=== PATIENT | male | born 1950 | race Caucasian/White ===

== ENCOUNTER 2017-01-02 12:38 | Emergency (ER) | payer MEDICARE, BC ==
[2017-01-02] MEDS ORDERED: Lidocaine 1% 50 ML MDV ONE (13:07)
--- NOTE | 2017-01-02 13:43 | EDM.PDOC ---
ED HPI GENERAL MEDICAL PROBLEM - General Chief Complaint: Upper Extremity Injury/Pain Stated Complaint: RIGHT THUMB INJURY-ON COUMADIN Time Seen by Provider: 01/02/17 13:08 Source of Information: Reports: Patient History Limitations: Reports: No Limitations - History of Present Illness INITIAL COMMENTS - FREE TEXT/NARRATIVE: Patient is a 66-year-old male who presents to the ED complaining of a laceration to the palmar aspect of his right thumb on Coumadin. Patient states he was utilizing a table saw cutting a piece of wood causing injury. Bleeding was moderate controlled with direct pressure. Last INR was 2.43. He is on Coumadin for a stroke that occurred in . Denies any numbness or tingling, decreased range of motion, injury to other aspects of his hand/fingers or any additional complaint. Right Hand Pain Score (Numeric/FACES): 5 - Related Data Allergies Allergy/AdvReac Type Severity Reaction Status Date / Time No Known Allergies Allergy Verified 01/02/17 12:46 Home Meds: Home Meds Cephalexin [Keflex] 500 mg PO QID #28 capsule 01/02/17 [Rx] Diltiazem [Cardizem CD] 180 mg PO DAILY 01/02/17 [History] Diltiazem [Cardizem CD] 240 mg PO DAILY 01/02/17 [History] Warfarin [Coumadin] 5 mg PO DAILY 01/02/17 [History] Past Medical History HEENT History: Reports: Cataract, Impaired Vision Cardiovascular History: Reports: Hypertension Neurological History: Reports: CVA Other Neuro History: CVA in 2007 - Past Surgical History HEENT Surgical History: Reports: Eye Surgery Social & Family History - Family History Family Medical History: Noncontributory - Tobacco Use Smoking Status *Q: Former Smoker Used Tobacco, but Quit: Yes Month Tobacco Last Used: Dec Tobacco Use Comment: Quit many years ago greater than 7 - Caffeine Use Caffeine Use: Reports: Coffee - Recreational Drug Use Recreational Drug Use: No Review of Systems - Review of Systems Review Of Systems: ROS reveals no pertinent complaints other than HPI. ED EXAM, GENERAL - Physical Exam Exam: See Below Exam Limited By: No Limitations General Appearance: Alert, WD/WN, No Apparent Distress Ears: Hearing Grossly Normal Nose: Normal Inspection Throat/Mouth: Normal Voice, No Airway Compromise Neck: Normal Inspection, Supple Respiratory/Chest: No Respiratory Distress, No Accessory Muscle Use Cardiovascular: Normal Peripheral Pulses, Regular Rate, Rhythm Peripheral Pulses: 2+: Radial (R) Extremities: Other (Right thumb: Large flap laceration to the palmar aspect of his right thumb measuring approximate 6-7 cm in total length. Able to see the DIP and also flexor tendon. Flexor tendon has been completely severed. Patient still able to flex the distal phalanx against resistance with no pain. No sensory/motor deficits noted.) Neurological: Alert, Oriented, CN II-XII Intact, Normal Cognition, No Motor/ Sensory Deficits Psychiatric: Normal Affect, Normal Mood Skin Exam: Warm, Dry, Normal Color ED TRAUMA EXTREMITY PROCEDURES - Laceration/Wound Repair Right Other Lac/Wound Length In cm: 7 Appearance: Subcutaneous Distal NVT: Neuro & Vascular Intact, Other (complete tear of the flexor tendon distal phalanx) Anesthetic Type: Local Local Anesthesia - Lidocaine (Xylocaine): 1% Plain Local Anesthetic Volume: Other (8) Skin Prep: Chlorhexidine (Hibiciens), Saline, Sterile Drape Exploration/Debridement/Repair: Wound Explored, In a Bloodless Field, Explored to Base, No Foreign Material Found, Multiple Flaps Aligned Closed With: Sutures Suture Size: 4-0 # of Sutures: 10 Suture Type: Prolene, Interrupted, Simple Drain Placement: No Sterile Dressing Applied: Nurse Tetanus Status Addressed: Yes Complications: No Course - Vital Signs Last Recorded V/S: Last Vital Signs Temp 97.5 F 01/02/17 12:50 Pulse 108 H 01/02/17 12:50 Resp 18 01/02/17 12:50 BP 142/96 H 01/02/17 12:50 Pulse Ox 97 01/02/17 12:50 - Orders/Labs/Meds Meds: Medications Discontinued Medications Generic Name Dose Route Start Last Admin Trade Name Freq PRN Reason Stop Dose Admin Cefazolin Sodium 1,000 mg 01/02/17 14:18 01/02/17 15:06 Ancef IM 01/02/17 14:19 Not Given ONETIME ONE Cefazolin Sodium Confirm 01/02/17 14:33 01/02/17 15:05 Ancef Administered 01/02/17 14:34 1 gm Dose Administration 1 gm .ROUTE .STK-MED ONE Cephalexin 500 mg 01/02/17 14:18 01/02/17 14:50 Keflex PO 01/02/17 14:19 500 mg ONETIME ONE Administration Lidocaine HCl Confirm 01/02/17 13:07 01/02/17 13:15 Xylocaine 1% Administered 01/02/17 13:08 50 ml Dose Administration 50 ml .ROUTE .[facility] - Re-Assessments/Exams Free Text/Narrative Re-Assessment/Exam: Ordered 1% lidocaine and x-ray of the right thumb. Due to excessive bleeding Surgicel was placed to the affected wound. This stopped the bleeding. X-ray of the right thumb does not reveal any acute bony abnormalities. Although bone is visualized on examination. Ordered Ancef 1 g IM and Keflex 500 mg by mouth. Offered to the patient to be transported to [facility] to have the wound surgically closed by a orthopedic surgeon. Patient refuses and states wants it done here. 01/02/17 14:18 X-ray of the right thumb did not reveal any acute bony abnormalities. Soft tissue swelling only. Laceration closed with no complications. On examination it appears flexor tendon to the DIP was completely severed. Patient still able to flex the DIP. Dressing applied per nursing staff. Discharge instructions as documented. Departure - Departure Time of Disposition: 14:19 Disposition: Home, Self-Care 01 Condition: Good Clinical Impression: Laceration of thumb Qualifiers: Encounter type: initial encounter Damage to nail status: without damage Foreign body presence: without foreign body Laterality: right Qualified Code(s) : S61.011A - Laceration without foreign body of right thumb without damage to nail, initial encounter Flexor tendon laceration of finger with open wound Qualifiers: Encounter type: initial encounter Qualified Code(s): S56.129A - Laceration of flexor muscle, fascia and tendon of unspecified finger at forearm level, initial encounter; S61.209A - Unspecified open wound of unspecified finger without damage to nail, initial encounter; S61.209A - Unspecified open wound of unspecified finger without damage to nail, initial encounter - Discharge Information Prescriptions: Cephalexin [Keflex] 500 mg PO QID #28 capsule Instructions: Laceration Care, Adult Referrals: David Nunez MD [Primary Care Provider] - [facility] [Outside] Forms: ED Department Discharge Additional Instructions: Cleanse site twice daily with soap and water, pat dry, reapply triple antibiotics ointment, and dressing. Do not soak the wound. Keep the area clean and dry. Call and make an appointment today with [facility] be [facility] next week for further evaluation. Leave splint in place until evaluated by orthopedic surgeon. Follow-up with a provider at [facility] in [place] in 10 days to have sutures removed. Complete the full course of antibiotic as prescribed. Take Tylenol and ibuprofen in alternating fashion for discomfort. INR will increase with antibiotic use. Please follow up with PCP for recheck of your INR. Return to ED for any new or worsening symptoms.
--- NOTE | 2017-01-02 14:00 | CR ---
Right thumb: Three views of the right thumb were obtained. Soft tissue injury is seen. No opaque foreign object is seen. No acute bony abnormality is noted. Slight degenerative change is present. Impression: 1. Soft tissue injury and slight degenerative change. 2. No acute bony abnormality is seen. Diagnostic code #3
[2017-01-02] MEDS ORDERED: ceFAZolin 1,000 MG VIAL IM ONE (14:18)
[2017-01-02] MEDS ORDERED: Cephalexin 500 MG Cap PO ONE (14:18)
[2017-01-02] MEDS ORDERED: ceFAZolin 1 GM Vial ONE (14:33)
== END 2017-01-02 15:12 | disposition home or self-care (01) ==
LOC: JD.ED 12:38
DX: S66.021A Laceration of long flexor muscle, fascia and tendon of right thumb at wrist and hand level, initial encounter (principal); S61.011A Laceration without foreign body of right thumb without damage to nail, initial encounter; Z79.01 Long term (current) use of anticoagulants; Z79.899 Other long term (current) drug therapy; Z87.891 Personal history of nicotine dependence; W27.0XXA Contact with workbench tool, initial encounter
CPT/HCPCS: 12002; 73140; 96372; 99283; A9270; J0690; 12032; 99284-25

== ENCOUNTER 2017-12-11 07:34 | Emergency (ER) | payer MEDICARE, BC ==
--- NOTE | 2017-12-11 08:08 | EDM.PDOC ---
ED HPI GENERAL MEDICAL PROBLEM - General Chief Complaint: Syncope Stated Complaint: SYNCOPE Time Seen by Provider: 12/11/17 07:46 Source of Information: Reports: Patient, Family ( + daughter), RN Notes Reviewed History Limitations: Reports: No Limitations - History of Present Illness INITIAL COMMENTS - FREE TEXT/NARRATIVE: The patient states that he got up from his kitchen table around 07:00 this morning. He states that he felt clammy and diaphoretic, then nearly passed out. He was able to lower himself to the floor, and was not injured. His had him remain there while she called EMS. EMS evaluated the patient and found no abnormalities. The patient's then drove the patient to the ED. Here in the ED, the patient states that he feels slightly lightheaded, and he is complaining of a chronic upper right toothache, otherwise, he has no complaints. The patient had 2 prior syncopal or near syncopal episodes, about 9 or 10 years ago. He states that evaluations at that time were both negative. No recent illnesses, including no recent fever, cough, chest pain, dyspnea, abdominal pain, or diarrhea. The patient's PCP is Dr. Nunez. - Related Data Allergies Allergy/AdvReac Type Severity Reaction Status Date / Time No Known Allergies Allergy Verified 01/02/17 12:46 Home Meds: Home Meds Diltiazem [Cardizem CD] 180 mg PO DAILY 01/02/17 [History] Diltiazem [Cardizem CD] 240 mg PO DAILY 01/02/17 [History] Warfarin [Coumadin] 5 mg PO DAILY 01/02/17 [History] Past Medical History HEENT History: Reports: Impaired Vision Cardiovascular History: Reports: Afib (paroxysmal), Hypertension Neurological History: Reports: CVA (2007, with resultant left hemiparesis) Other Neuro History: CVA in 2007 Hematologic History: Reports: Anticoagulation Therapy (Coumadin) - Past Surgical History HEENT Surgical History: Reports: Cataract Surgery Cardiovascular Surgical History: Reports: Cardiac Ablation (for A-fib, around 2006) Male Surgical History: Reports: Vasectomy Social & Family History - Family History Family Medical History: Noncontributory - Tobacco Use Smoking Status *Q: Former Smoker Years of Tobacco use: 39 Packs/Tins Daily: 1.5 Month/Year Tobacco Last Used: Quit around 2005 - Caffeine Use Caffeine Use: Reports: Coffee - Alcohol Use Alcohol Use History: Yes Alcohol Use Frequency: Socially - Recreational Drug Use Recreational Drug Use: No - Living Situation & Occupation Living situation: Reports: , with Spouse Occupation: Retired ED ROS GENERAL - Review of Systems Review Of Systems: ROS reveals no pertinent complaints other than HPI. - Physical Exam Exam: See Below Exam Limited By: No Limitations General Appearance: Alert, WD/WN, No Apparent Distress Eye Exam: Bilateral Eye: EOMI, Normal Inspection Ears: Normal External Exam, Hearing Grossly Normal Nose: Normal Inspection Throat/Mouth: Normal Inspection, Normal Lips, Normal Teeth, Normal Gums, Normal Oropharynx, Normal Voice, No Airway Compromise Head Exam: Atraumatic, Facial Swelling (right cheek, mild) Neck: Normal Inspection, Full Range of Motion Respiratory/Chest: No Respiratory Distress, Lungs Clear, Normal Breath Sounds, No Accessory Muscle Use Cardiovascular: Normal Peripheral Pulses, Regular Rate, Rhythm, No Edema, No Gallop, No JVD, No Murmur, No Rub GI/Abdominal: Normal Bowel Sounds, Soft, Non-Tender, No Organomegaly, No Distention, No Abnormal Bruit, No Mass, Other (Obese) (Male) Exam: Deferred Rectal (Males) Exam: Deferred Neuro Exam (Abbreviated): Alert, Oriented, Normal Cognition, No Motor/Sensory Deficits Back Exam: Normal Inspection, Full Range of Motion, NT Extremities: Normal Inspection, Normal Range of Motion, No Pedal Edema, Normal Capillary Refill Psychiatric: Normal Affect Skin Exam: Warm, Dry, Intact, Normal Color, No Rash EKG INTERPRETATION EKG Date: 12/11/17 Time: 07:40 Rhythm: A-Fib Rate (Beats/Min): 99 [place]: Normal P-Wave: Absent QRS: Normal ST-T: Normal QT: Normal Comparison: NA - No Prior EKG Course - Vital Signs Last Recorded V/S: Last Vital Signs Temp 36.1 C 12/11/17 07:43 Pulse 88 12/11/17 07:43 Resp 19 12/11/17 07:43 BP 133/94 H 12/11/17 07:43 Pulse Ox 95 12/11/17 07:43 Orthostatic Blood Pressure [ 131/96 Standing] Orthostatic Blood Pressure [ 131/96 Sitting] Orthostatic Blood Pressure [ 143/94 Supine] - Orders/Labs/Meds Orders: Active Orders 24 hr Category Date Time Status EKG Documentation Completion [RC] STAT Care 12/11/17 07:47 Active Orthostatic Vital Signs [RC] STAT Care 12/11/17 07:48 Active Orthostatic Vital Signs [RC] STAT Care 12/11/17 08:38 Active Labs: Laboratory Tests 12/11/17 12/11/17 12/11/17 Range/Units 08:20 08:20 08:20 WBC 12.35 H (4.23-9.07) K/mm3 RBC 5.45 (4.63-6.08) M/mm3 Hgb 16.2 (13.7-17.5) gm/L Hct 48.0 (40.1-51.0) % MCV 88.1 (79.0-92.2) fl MCH 29.7 (25.7-32.2) pg MCHC 33.8 (32.2-35.5) g/dl RDW Std Deviation 46.1 H (35.1-43.9) fL Plt Count 197 (163-337) K/mm3 MPV 11.0 (9.4-12.3) fl Neutrophils % (Manual) 71 H (40-60) % Band Neutrophils % 3 (0-10) % Lymphocytes % (Manual) 15 L (20-40) % Atypical Lymphs % 0 % Monocytes % (Manual) 8 (2-10) % Eosinophils % (Manual) 2 (0.8-7.0) % Basophils % (Manual) 1 (0.2-1.2) Platelet Estimate Adequate RBC Morph Comment Normal PT 19.6 H (9.5-12.1) SECONDS INR 1.82 Sodium 136 (136-145) mEq/L Potassium 4.4 (3.5-5.1) mEq/L Chloride 103 (98-107) mEq/L Carbon Dioxide 24 (21-32) mEq/L Anion Gap 13.4 (5-15) BUN 17 (7-18) mg/dL Creatinine 1.3 (0.7-1.3) mg/dL Est Cr Clr Drug Dosing 64.11 mL/min Estimated GFR (MDRD) 55 (>60) mL/min BUN/Creatinine Ratio 13.1 L (14-18) Glucose 119 H (80-115) mg/dL Calcium 9.0 (8.5-10.1) mg/dL Magnesium 2.0 (1.8-2.4) mg/dl Total Bilirubin 1.4 H (0.2-1.0) mg/dL AST 17 (15-37) U/L ALT 25 (16-63) U/L Alkaline Phosphatase 86 (46-116) U/L Troponin I < 0.017 (0.00-0.056) ng/mL Total Protein 7.3 (6.4-8.2) g/dl Albumin 3.4 (3.4-5.0) g/dl Globulin 3.9 gm/dL Albumin/Globulin Ratio 0.9 L (1-2) Meds: Medications Discontinued Medications Generic Name Dose Route Start Last Admin Trade Name Freq PRN Reason Stop Dose Admin Sodium Chloride 1,000 mls @ 999 mls/hr 12/11/17 08:37 12/11/17 08:54 Normal Saline IV 12/11/17 09:37 999 mls/hr ONETIME ONE Administration - Re-Assessments/Exams Free Text/Narrative Re-Assessment/Exam: 12/11/17 08:37 The patient's orthostatics are positive. I have ordered 1 L NS bolus, then will recheck orthostatics. 12/11/17 10:11 Repeat orthostatics, following 1 L NS, are now negative. The patient's workup is otherwise unremarkable. His INR is subtherapeutic at 1.8 to - I will have him contact his prescribing physician for Coumadin adjustment. I will recommend that he stay well hydrated with Gatorade or Powerade for the next couple of days. Departure - Departure Time of Disposition: 10:12 Disposition: Home, Self-Care 01 Condition: Fair Clinical Impression: Near syncope, Orthostasis, Subtherapeutic international normalized ratio (INR) - Discharge Information *PRESCRIPTION DRUG MONITORING PROGRAM REVIEWED*: Not Applicable *COPY OF PRESCRIPTION DRUG MONITORING REPORT IN PATIENT LAILA: Not Applicable Referrals: David Nunez MD [Primary Care Provider] - Forms: ED Department Discharge Additional Instructions: You were seen in the emergency room after nearly passing out at home. Workup in the ER included blood work, positional blood pressure checks, and an ECG. Your blood pressure and heart rate changed excessively between lying and standing, indicating that you were intravascularly depleted. You were given 1 L of IV fluid, and your values are now within normal limits. Your INR (Coumadin number) is slightly low at 1.82. We recommend that you stay well hydrated with Gatorade or Powerade this weekend. We recommend that you contact the Coumadin clinic today, and let them know that your INR is low at 1.82, then follow their instructions. Follow-up with your PCP, Dr. Nunez, this coming week. If any other problems, please do not hesitate to return to the ER. - My Orders Last 24 Hours: My Active Orders 12/11/17 07:47 EKG Documentation Completion [RC] STAT 12/11/17 07:48 Orthostatic Vital Signs [RC] STAT 12/11/17 08:38 Orthostatic Vital Signs [RC] STAT - Assessment/Plan Last 24 Hours: My Active Orders 12/11/17 07:47 EKG Documentation Completion [RC] STAT 12/11/17 07:48 Orthostatic Vital Signs [RC] STAT 12/11/17 08:38 Orthostatic Vital Signs [RC] STAT
[2017-12-11] MEDS ORDERED: Sodium Chloride 0.9% 1,000 ML IV ONE (08:37)
== END 2017-12-11 10:45 | disposition home or self-care (01) ==
LOC: JD.ED 07:34
DX: I95.1 Orthostatic hypotension (principal); R79.1 Abnormal coagulation profile; I48.91 Unspecified atrial fibrillation; Z79.899 Other long term (current) drug therapy; Z79.891 Long term (current) use of opiate analgesic; Z79.01 Long term (current) use of anticoagulants
CPT/HCPCS: 36415; 80053; 83735; 84484; 85007; 85027; 85610; 93005; 96360; 99284; J7040; 93010

== ENCOUNTER → 2021-08-29 | Day surgery (SDC) | payer MEDICARE, BC ==
[2021-08-29] MEDS: Brimonidine 0.2% Ophth Soln 5 ML Bottle EYEBOTH SCH ×2 (15:45→17:15)
[2021-08-29] MEDS: Phenylephrine 2.5% Ophth Soln 2 ML Bot EYEBOTH SCH ×2 (15:50→16:00)
[2021-08-29] MEDS: Tropicamide 1% Ophth Soln 15 ML Bottle EYEBOTH SCH ×2 (15:57→16:06)
== END ==
LOC: JD.SDS 16:24
PROVIDERS: ATTEND Ophthalmology
DX: H26.493 Other secondary cataract, bilateral (principal); E78.00 Pure hypercholesterolemia, unspecified; I10 Essential (primary) hypertension; Z86.73 Personal history of transient ischemic attack (TIA), and cerebral infarction without residual deficits

== ENCOUNTER 2023-06-09 17:17 | Emergency (ER) | payer MEDICARE, BC ==
[2023-06-09] MEDS ORDERED: Sodium Chloride 0.9% 10 ML Syringe FLUSH PRN (17:25)
[2023-06-09 17:41] LABS: BASOPHILS PERCENT AUTO 0.4 % (0.0-1.0); EOSINOPHILS ABSOLUTE AUTO 0.1 K/mm3 (0.0-0.4); HEMOGLOBIN 16.5 gm/dl (14.0-18.0); IMMATURE GRAN ABSOLUTE AUTO 0.05 K/mm3 (0.00-0.05); IMMATURE GRAN PERCENT AUTO 0.5 % (0.0-0.4); LYMPHOCYTES ABSOLUTE AUTO 1.6 K/mm3 (1.0-4.8); LYMPHOCYTES PERCENT AUTO 15.3 % (24.0-44.0); MEAN CORPUSCULAR HEMOGLOBIN 30.6 pg (28.0-32.0); MEAN CORPUSCULAR HGB CONC 34.4 g/dl (32.0-36.0); MEAN CORPUSCULAR VOLUME 89.1 fl (83.0-99.0); MEAN PLATELET VOLUME 11.4 fl (9.4-12.4); MONOCYTES ABSOLUTE AUTO 0.8 K/mm3 (0.0-0.8); MONOCYTES PERCENT AUTO 7.4 % (0.0-8.0); NEUTROPHILS ABSOLUTE AUTO 8.1 K/mm3 (1.8-7.7); NEUTROPHILS PERCENT AUTO 75.4 % (41.0-71.0); PLATELET COUNT,PLT 162 K/mm3 (150-400); RED BLOOD CELL COUNT 5.39 M/mm3 (4.52-5.90); WHITE BLOOD CELL COUNT,WBC 10.73 K/mm3 (3.9-11.3)
[2023-06-09 17:59] LABS: INR 0.98; PROTHROMBIN TIME 10.5 SECONDS (9.7-12.0)
[2023-06-09 18:00] LABS: PTT,PARTIAL THROMBOPLSTIN TIME 28.6 SECONDS (21.7-31.4)
[2023-06-09] MEDS: Iopamidol 612 MG/ML 100 ML Bottle IVPUSH ONE (18:01)
[2023-06-09] MEDS: Sodium Chloride 0.9% 10 ML Syringe FLUSH ONE (18:01)
[2023-06-09 18:12] LABS: ALBUMIN 3.7 g/dl (3.4-5.0); ANION GAP 14.3 (5-15); BILIRUBIN TOTAL 0.7 mg/dL (0.2-1.0); CALCIUM 9.7 mg/dL (8.5-10.1); CREATININE 1.5 mg/dL (0.7-1.3); EST CRCL DRUG DOSING (CG) 49.57 mL/min; POTASSIUM,K 4.3 mEq/L (3.5-5.1); PROTEIN TOTAL,TP 7.6 g/dl (6.4-8.2)
== END 2023-06-09 19:19 | disposition home or self-care (01) ==
LOC: JD.ED 17:17
DX: S29.011A Strain of muscle and tendon of front wall of thorax, initial encounter (principal); S80.219A Abrasion, unspecified knee, initial encounter; S00.81XA Abrasion of other part of head, initial encounter; I10 Essential (primary) hypertension; I48.91 Unspecified atrial fibrillation; W01.0XXA Fall on same level from slipping, tripping and stumbling without subsequent striking against object, initial encounter
CPT/HCPCS: 36415; 70450; 70450-26; 71260; 71260-26; 74177; 74177-26; 80053; 85025; 85610; 85730; 99284; J3490; Q9967